=== PATIENT | female | born 1990 | race Caucasian/White ===

== ENCOUNTER 2019-07-27 17:52 | Emergency (ER) | payer OTHER, SELFPAY ==
[2019-07-27 17:59] VITALS: BP 141/56; PULSE 76; RESP 20; TEMP 36.8; O2SAT 99; BMI 33.6
--- NOTE | 2019-07-27 18:15 | PC.NURSE ---
ER at -gave verbal orders on pt
[2019-07-27 18:21] VITALS: BMI 33.6
[2019-07-27 18:29] LABS: Microscopic, Urine URINE MICROSCOPIC (MICROSCOPIC)
[2019-07-27 18:31] LABS: Appearance,Urine CLEAR (Clear); Basophils # 0.1 K/mm3 (0-0.2); Basophils % 0.9 % (0.1-2.0); Bilirubin,Urine Negative (Negative); Blood, Urine Negative (Negative); Color,Urine YELLOW (Yellow); Eosinophils # 0.5 K/mm3 (0.0-0.4); Eosinophils % 4.9 % (0.1-12.0); Glucose,Urine (UA) Negative (Negative); Hematocrit 48.4 % (37.0-47.0); Hemoglobin 15.8 g/dL (12.2-16.2); Ketones,Urine Negative (Negative); Leukocyte Esterase,Urine Negative (Negative); Lymphocytes # 3.5 K/mm3 (0.7-4.5); Lymphocytes % 35.7 % (10-50); Mean Corpuscular HGB Conc 32.7 g/dL (31.8-35.4); Mean Corpuscular Hemoglobin 27.2 pg (27.0-31.2); Mean Corpuscular Volume 83.2 fl (81-99); Mean Platelet Volume 7.9 fl (7.4-10.4); Monocytes # 0.7 K/mm3 (0.1-1.0); Monocytes % 7.1 % (1.7-9.3); Neutrophils # 5.1 K/mm3 (1.8-7.8); Neutrophils % 51.4 % (37.0-80.0); Nitrate,Urine Negative (Negative); Platelet Count 415 K/mm3 (142-424); Protein,Urine Negative (Negative); Red Blood Count 5.82 M/mm3 (4.20-5.40); Red Cell Distribution Width 13.7 % (11.5-17.5); Urobilinogen,Urine 0.2 EU/dl (0.2); White Blood Count 9.9 K/mm3 (4.8-10.8)
[2019-07-27 18:34] LABS: Alanine Aminotransferase 34 U/L (12-78); Albumin Level 4.9 g/dl (3.5-5.0); Albumin/Globulin Ratio 1.5 (1.1-1.8); Alkaline Phosphatase 154 U/L (38-126); Anion Gap 9.8 mEq/L (5-15); Aspartate Amino Transferase 32 U/L (14-36); Bilirubin,Total 0.2 mg/dl (0.2-1.3); Blood Urea Nitrogen 10 mg/dl (7-17); Carbon Dioxide 27 mmol/L (22.0-30.0); Chloride 103 mmol/L (98-107); Creatinine Clearance Estimated 260 mL/min (50-200); Estimated Glomerular Filt Rate 148 ml/min (>60); GFR (African American) 179 ML/MIN (>60); Globulin 3.2 g/dL (1.3-3.2); Glucose 99 mg/dl (74-100); PH,Urine >= 9.0 (5.0-8.5); Potassium 3.8 mmoL/L (3.5-5.1); Sodium 136 mmol/L (136-145); Total Protein,Serum 8.1 g/dl (6.3-8.2)
[2019-07-27 18:35] LABS: Squamous Epithelial Cell,Urine 20-50 #/hpf (0-5); Urine Pregnancy, HCG Qual. Negative (Negative)
[2019-07-27 18:36] LABS: Mucus,Urine 1+ /lpf
[2019-07-27 18:44] LABS: Barbiturates Screen,Urine Negative ng/ml (<200); Benzodiazepines Screen,Urine Negative ng/ml (<200)
[2019-07-27 18:45] LABS: Amphetamine/Metha Screen,Urine Negative ng/ml (<1000)
[2019-07-27 18:46] LABS: Cannabinoid Screen,Urine Negative ng/ml (<50); Cocaine Screen,Urine Positive ng/ml (<300)
[2019-07-27 18:47] LABS: Methadone Screen,Urine Negative ng/ml (<300)
[2019-07-27 18:48] LABS: Opiate Screen,Urine Negative ng/ml (<300); Phencyclidine Screen,Urine Negative ng/ml (<25)
[2019-07-27 19:06] VITALS: BP 172/79; PULSE 78; RESP 20; O2SAT 100
--- NOTE | 2019-07-27 19:07 | HMH.EDGENADL ---
ED Disposition Clinical Impression: Opiate withdrawal Disposition: Home, Self-Care Condition on Discharge: Good Instructions: DI for Nausea -- Adult, DI for Nausea -- Child, DI for Diarrhea and Traveler's Diarrhea -- Adult, DI for Diarrhea and Traveler's Diarrhea -- Child Prescriptions: Promethazine HCl [Phenergan 25mg tablet] 25 mg PO Q6HP PRN 6 Days #20 tab PRN Reason: Agitation Prescription Printed Referrals: Herbert Bran [Primary Care Provider] - - Critical Care Critical Care Time: No Attestation: On 07/27/19, the high probability of a clinically significant, sudden or life threatening deterioration of the following system(s) required my full and direct attention, intervention and personal management. The time I documented below is in addition to time spent performing reported procedures but includes the following listed in this critical care notation. Medical Decision Making - Medical Records Medical records reviewed: Yes: I reviewed the patient's medical records. - Porter Inquiry Pt receiving controlled substance: No Vital Signs: 07/27/19 17:59 07/27/19 19:06 Temperature 98.2 F Temperature Source Oral Pulse Rate [Left Radial] 76 78 Respiratory Rate 20 20 Blood Pressure [Left Arm] 141/56 H 172/79 H Blood Pressure Mean [Left Arm] 84 110 Blood Pressure Source [Left Arm] Automatic Cuff Automatic Cuff Blood Pressure Position [Left Arm] Sitting Sitting 02 Sat by Pulse Oximetry 99 100 Oxygen Delivery Method Room Air Room Air - Lab Data Lab results reviewed: Yes: I reviewed the patient's lab results. Lab Results 07/27/19 18:15: Urine Color Yellow, Urine Appearance Clear, Urine pH >= 9.0 H, Ur Specific [place] 1.020, Urine Protein Negative, Urine Glucose (UA) Negative, Urine Ketones Negative, Urine Blood Negative, Urine Nitrate Negative, Urine Bilirubin Negative, Urine Urobilinogen 0.2, Ur Leukocyte Esterase Negative, Ur Squamous Epith Cells 20-50, Urine Mucus 1+ 07/27/19 18:15: WBC 9.9, RBC 5.82 H, Hgb 15.8, Hct 48.4 H, MCV 83.2, MCH 27.2, MCHC 32.7, RDW 13.7, Plt Count 415, MPV 7.9, Neut % (Auto) 51.4, Lymph % (Auto) 35.7, [place] % (Auto) 7.1, Eos % (Auto) 4.9, Baso % (Auto) 0.9, Neut # (Auto) 5.1, Lymph # (Auto) 3.5, [place] # (Auto) 0.7, Eos # (Auto) 0.5 H, Baso # (Auto) 0.1 07/27/19 18:15: Urine HCG, Qual Negative 07/27/19 18:15: Sodium 136, Potassium 3.8, Chloride 103, Carbon Dioxide 27, Anion Gap 9.8, BUN 10, Creatinine 0.50 L, Estimated Creat Clear 260, Estimated GFR 148, Est GFR ( Amer) 179, Glucose 99, Calcium 10.0, Total Bilirubin 0.2, AST 32, ALT 34, Alkaline Phosphatase 154 H, Total Protein 8.1, Albumin 4.9, Globulin 3.2, Albumin/Globulin Ratio 1.5 07/27/19 18:15: Urine Opiates Screen Negative, Urine Methadone Screen Negative, Ur Barbituates Screen Negative, Ur Phencyclidine Scrn Negative, Ur Amphetamines Screen Negative, U Benzodiazepines Scrn Negative, Urine Cocaine Screen Positive H, U Marijuana (THC) Screen Negative Result diagrams: 07/27/19 18:15 07/27/19 18:15 Orders (Tests/Meds): ED MEDICATIONS Generic Name Dose Route Start Last Admin Trade Name Freq PRN Reason Stop Dose Admin Sodium Chloride 1,000 mls @ 999 mls/hr 07/27/19 18:30 07/27/19 18:26 Sod Chlor 0.9% 1000ml Bag IV 07/27/19 19:30 999 mls/hr .Q1H1M CHRISTINE Administration Discontinued Medications Generic Name Dose Route Start Last Admin Trade Name Freq PRN Reason Stop Dose Admin Promethazine HCl 25 mg 07/27/19 18:22 07/27/19 18:26 Phenergan 25mg/Ml 1ml Vial IV 07/27/19 18:23 25 mg ONCE ONE Administration Sodium Chloride 25 ml 07/27/19 18:22 07/27/19 18:26 Sod Chlor 0.9% 25ml Bag IV 07/27/19 18:23 25 ml ONCE ONE Administration General Adult HPI - General Chief complaint: Nausea/Vomiting/Diarrhea Stated complaint: withdrawals Time Seen by Provider: 07/27/19 19:07 Mode of Arrival: Wheelchair Source of Information: Patient Limitations: No Limitations Description of
--- NOTE | 2019-07-27 19:08 | PC.NURSE ---
Pt up to restroom
[2019-07-27 19:24] VITALS: BP 172/79; PULSE 78; RESP 18; TEMP 36.7; O2SAT 99
== END 2019-07-27 19:26 | disposition home or self-care (01) ==
PROVIDERS: Emergency Provider Family Medicine; PCP Family Medicine
DX: F11.23 Opioid dependence with withdrawal (principal); Z88.1 Allergy status to other antibiotic agents; Z88.2 Allergy status to sulfonamides; F17.210 Nicotine dependence, cigarettes, uncomplicated
CPT/HCPCS: 80053; 80305; 81001; 81025; 85025; 96365; 96375; 99283

== ENCOUNTER 2019-08-25 19:41 | Emergency (ER) | payer OTHER, SELFPAY ==
[2019-08-25 19:37] VITALS: BP 160/92; PULSE 100; RESP 20; O2SAT 98
[2019-08-25 19:39] VITALS: BMI 74.9
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
[2019-08-25 19:42] VITALS: BP 157/73; PULSE 95; RESP 20; O2SAT 99
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
--- NOTE | 2019-08-25 19:45 | PC.NURSE ---
Manual bp 148/90 upon arrival to facility
[2019-08-25 19:47] VITALS: BP 152/93; PULSE 95; RESP 26; O2SAT 98
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
[2019-08-25 19:52] VITALS: BP 153/90; PULSE 94; O2SAT 98
--- NOTE | 2019-08-25 19:52 | PC.NURSE ---
waiting on [facility]
[2019-08-25 19:56] LABS: Basophils % 0.4 % (0.1-2.0); Eosinophils # 0.1 K/mm3 (0.0-0.4); Eosinophils % 1.2 % (0.1-12.0); Hematocrit 46.5 % (37.0-47.0); Hemoglobin 16.3 g/dL (12.2-16.2); Lymphocytes # 3.4 K/mm3 (0.7-4.5); Lymphocytes % 29.3 % (10-50); Mean Corpuscular HGB Conc 35.1 g/dL (31.8-35.4); Mean Corpuscular Hemoglobin 29.5 pg (27.0-31.2); Mean Corpuscular Volume 83.8 fl (81-99); Mean Platelet Volume 7.8 fl (7.4-10.4); Monocytes # 0.6 K/mm3 (0.1-1.0); Monocytes % 4.9 % (1.7-9.3); Neutrophils # 7.4 K/mm3 (1.8-7.8); Neutrophils % 64.3 % (37.0-80.0); Platelet Count 377 K/mm3 (142-424); Red Blood Count 5.55 M/mm3 (4.20-5.40); Red Cell Distribution Width 13.3 % (11.5-17.5); White Blood Count 11.6 K/mm3 (4.8-10.8)
[2019-08-25 19:57] VITALS: BP 152/91; PULSE 95; RESP 24; O2SAT 99
[2019-08-25 20:00] LABS: Chloride 106 mmol/L (98-107); Sodium 140 mmol/L (136-145)
[2019-08-25 20:01] LABS: Potassium 3.5 mmoL/L (3.5-5.1)
[2019-08-25 20:03] VITALS: BP 151/89; PULSE 94; RESP 24; TEMP 36.7; O2SAT 99
[2019-08-25 20:03] LABS: Blood Urea Nitrogen 13 mg/dl (7-17); Creatinine Clearance Estimated 117 mL/min (50-200); Estimated Glomerular Filt Rate 100 ml/min (>60); GFR (African American) 121 ML/MIN (>60)
[2019-08-25 20:04] LABS: Anion Gap 12.5 mEq/L (5-15); Calcium 9.3 mg/dl (8.4-10.2); Carbon Dioxide 25 mmol/L (22.0-30.0); Glucose 125 mg/dl (74-100)
[2019-08-25 20:58] LABS: Microscopic, Urine URINE MICROSCOPIC (MICROSCOPIC)
[2019-08-25 20:59] LABS: Blood, Urine 3+ (Negative); Glucose,Urine (UA) Negative (Negative); Ketones,Urine 2+ (Negative); Leukocyte Esterase,Urine TRACE (Negative); Nitrate,Urine Negative (Negative); PH,Urine 6.5 (5.0-8.5); Protein,Urine 1+ (Negative); Specific Gravity, Urine 1.025 (1.005-1.030)
[2019-08-25 21:03] LABS: Appearance,Urine Cloudy (Clear); Bilirubin,Urine Negative (Negative); Color,Urine Dark Yellow (Yellow)
[2019-08-25 21:24] LABS: Bacteria,Urine 4+ /lpf; Mucus,Urine 2+ /lpf
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
--- NOTE | 2019-08-26 00:43 | PC.NURSE ---
@[phone] on phone with MDs, patient accepted by Dr. Malloy
--- NOTE | 2019-08-26 00:44 | PC.NURSE ---
@1924 Waiting on [facility] for transfer
[2019-09-18 12:29] LABS: POC Glucose,Bedside 121 (70-110)
== END 2019-08-25 20:05 | disposition short-term general hospital (02) ==
PROVIDERS: Emergency Provider Emergency Medicine
DX: M54.2 Cervicalgia (principal); M54.6 Pain in thoracic spine; R10.84 Generalized abdominal pain; S00.211A Abrasion of right eyelid and periocular area, initial encounter; Y92.488 Other paved roadways as the place of occurrence of the external cause; V43.62XA Car passenger injured in collision with other type car in traffic accident, initial encounter; F17.210 Nicotine dependence, cigarettes, uncomplicated; Z88.1 Allergy status to other antibiotic agents; Z88.2 Allergy status to sulfonamides
CPT/HCPCS: 71045; 72170; 80048; 81001; 82962; 85025; 87086; 87088; 87186; 96374; 96375; 99284

== ENCOUNTER 2020-01-09 12:56 | Emergency (ER) | payer OTHER, SELFPAY ==
--- NOTE | 2020-01-09 13:15 | PC.NURSE ---
PATIENT TO [facility] FROM REGISTRATION AT THIS TIME
[2020-01-09 13:20] VITALS: BP 142/87; PULSE 72; RESP 19; TEMP 36.9; O2SAT 98; BMI 39.1
--- NOTE | 2020-01-09 13:34 | HMH.EDUTC ---
[facility] [place] Disposition Clinical Impression: Fluid retention in legs, Cellulitis of abdominal wall Disposition: Home, Self-Care Condition on Discharge: Good Instructions: DI for Cellulitis -- Adult Prescriptions: cephALEXin [Keflex 500mg Cap] 500 mg PO Q6H 10 Days #40 cap Transmission Status: Pending to [facility] Furosemide [Lasix 20mg tab] 20 mg PO DAILY #7 tab Transmission Status: Pending to [facility] Referrals: Herbert Bran [Primary Care Provider] - Time of Disposition: 14:51 Medical Decision Making - Porter Inquiry Pt receiving controlled substance: No Vital Signs: 01/09/20 13:20 Temperature 98.4 F Temperature Source Oral Pulse Rate [Right Brachial] 72 Respiratory Rate 19 Blood Pressure [Right Arm] 142/87 H Blood Pressure Mean [Right Arm] 105 Blood Pressure Source [Right Arm] Automatic Cuff Blood Pressure Position [Right Arm] Sitting 02 Sat by Pulse Oximetry 98 Oxygen Delivery Method Room Air - Lab Data Lab results reviewed: Yes: I reviewed the patient's lab results. Lab Results 01/09/20 13:45: WBC 8.5, RBC 4.97, Hgb 14.3, Hct 42.6, MCV 85.6, MCH 28.8, MCHC 33.6, RDW 13.7, Plt Count 277, MPV 7.6, Neut % (Auto) 49.7, Lymph % (Auto) 39.1, [place] % (Auto) 6.0, Eos % (Auto) 4.7, Baso % (Auto) 0.6, Neut # (Auto) 4.2, Lymph # (Auto) 3.3, [place] # (Auto) 0.5, Eos # (Auto) 0.4, Baso # (Auto) 0.1, ESR 11 01/09/20 13:45: Sodium 137, Potassium 3.7, Chloride 103, Carbon Dioxide 30, Anion Gap 7.7, BUN 10, Creatinine 0.60, Estimated Creat Clear 250, Estimated GFR 119, Est GFR ( Amer) 144, Glucose 72 L, Calcium 8.6, Total Bilirubin 0.2, AST 48 H, ALT 70, Alkaline Phosphatase 101, NT-Pro-B Natriuret Pep 71.4, Total Protein 6.5, Albumin 3.9, Globulin 2.6, Albumin/Globulin Ratio 1.5 Result diagrams: 01/09/20 13:45 01/09/20 13:45 [facility] [place] HPI - General Stated complaint: Swollen legs from hips down Time Seen by Provider: 01/09/20 13:34 - History of Present Illness Provider Complaint: Patient had sublocade injection 1 week ago. This was her 2nd injection. She has a knot at the injection site and skin is red, sore and swollen. For the past 3-4 days, her legs are very swollen. She has pitting edema. She stands on her feet at work. She can hardly bend her legs. She denies IVDU. She denies SOA. Has never had problems with fluid retention in the past. No fever. Onset (ago): week(s) (1) Location: abdomen, left, right, lower extremity Relieving factors: none Exacerbating factors: none Associated symptoms: denies other symptoms Treatments prior to arrival: none - Related Data Previous Rx's Medication Instructions Recorded Furosemide [Lasix 20mg tab] 20 mg PO DAILY #7 tab 01/09/20 cephALEXin [Keflex 500mg Cap] 500 mg PO Q6H 10 Days #40 cap 01/09/20 Allergies Allergy/AdvReac Type Severity Reaction Status Date / Time amoxicillin [From AUGMENTIN] Allergy Unknown Verified 07/27/19 18:23 clavulanic acid Allergy Unknown Verified 07/27/19 18:23 [From AUGMENTIN] ibuprofen [IBUPROFEN] Allergy Unknown Verified 07/27/19 18:23 metaxalone [From SKELAXIN] Allergy Unknown Verified 07/27/19 18:23 sulfamethoxazole Allergy Unknown Verified 07/27/19 18:23 [From BACTRIM] trimethoprim [From BACTRIM] Allergy Unknown Verified 07/27/19 18:23 [facility] History - Hepatitis A Screen Attestation statement:: This patient has been screened for Hepatitis A risk factors. I have reviewed the patient's past medical history: Yes Medical History: Denies:: Diabetes Mellitus Type 1, Diabetes Mellitus Type 2 - Social History Smoking Status: Current every day smoker Tobacco Type: cigarettes # Packs/Day (cigarettes): 1 Alcohol Intake: never Substance Use Type: opiates Occupational Status: other ROS Obtained: Yes All systems reviewed & no additional complaints - Musculoskeletal Musculoskeletal: Reports as per HPI - Integumentary/Breasts Skin/Breast: Reports as per HPI, Reports
[2020-01-09 14:14] LABS: Basophils # 0.1 K/mm3 (0-0.2); Basophils % 0.6 % (0.1-2.0); Eosinophils # 0.4 K/mm3 (0.0-0.4); Eosinophils % 4.7 % (0.1-12.0); Hematocrit 42.6 % (37.0-47.0); Hemoglobin 14.3 g/dL (12.2-16.2); Lymphocytes # 3.3 K/mm3 (0.7-4.5); Lymphocytes % 39.1 % (10-50); Mean Corpuscular HGB Conc 33.6 g/dL (31.8-35.4); Mean Corpuscular Hemoglobin 28.8 pg (27.0-31.2); Mean Corpuscular Volume 85.6 fl (81-99); Mean Platelet Volume 7.6 fl (7.4-10.4); Monocytes # 0.5 K/mm3 (0.1-1.0); Neutrophils # 4.2 K/mm3 (1.8-7.8); Neutrophils % 49.7 % (37.0-80.0); Platelet Count 277 K/mm3 (142-424); Red Blood Count 4.97 M/mm3 (4.20-5.40); Red Cell Distribution Width 13.7 % (11.5-17.5); White Blood Count 8.5 K/mm3 (4.8-10.8)
[2020-01-09 14:20] LABS: Chloride 103 mmol/L (98-107); Potassium 3.7 mmoL/L (3.5-5.1); Sodium 137 mmol/L (136-145)
[2020-01-09 14:22] LABS: Blood Urea Nitrogen 10 mg/dl (7-17); Creatinine Clearance Estimated 250 mL/min (50-200); Estimated Glomerular Filt Rate 119 ml/min (>60); GFR (African American) 144 ML/MIN (>60)
[2020-01-09 14:23] LABS: Alanine Aminotransferase 70 U/L (12-78); Albumin Level 3.9 g/dl (3.5-5.0); Albumin/Globulin Ratio 1.5 (1.1-1.8); Alkaline Phosphatase 101 U/L (38-126); Anion Gap 7.7 mEq/L (5-15); Aspartate Amino Transferase 48 U/L (14-36); Bilirubin,Total 0.2 mg/dl (0.2-1.3); Calcium 8.6 mg/dl (8.4-10.2); Carbon Dioxide 30 mmol/L (22.0-30.0); Globulin 2.6 g/dL (1.3-3.2); Glucose 72 mg/dl (74-100); Total Protein,Serum 6.5 g/dl (6.3-8.2)
[2020-01-09 14:32] LABS: NT Pro Brain Natriuretic Pep. 71.4 pg/mL (0-125)
[2020-01-09 14:41] LABS: Erythrocyte Sedimentation Rate 11 mm/hr (0-20)
[2020-01-09 15:28] VITALS: BP 142/87; PULSE 72; RESP 19; TEMP 36.9; O2SAT 98
== END 2020-01-09 15:30 | disposition home or self-care (01) ==
PROVIDERS: Emergency Provider Physician Assistant; PCP Family Medicine
DX: L03.311 Cellulitis of abdominal wall (principal); R60.0 Localized edema; Z88.1 Allergy status to other antibiotic agents; Z88.2 Allergy status to sulfonamides; F17.210 Nicotine dependence, cigarettes, uncomplicated
CPT/HCPCS: 80053; 83880; 85025; 85651; 99201

== ENCOUNTER 2020-04-27 17:05 | Emergency (ER) | payer OTHER, SELFPAY ==
--- NOTE | 2020-04-27 17:57 | HMH.EDUTC ---
[facility] [place] Disposition Clinical Impression: Exposure to COVID-19 virus Disposition: Home, Self-Care Condition on Discharge: Good Instructions: Preventing the Spread of Coronavirus Discharge Instructions Additional Instructions: Drink plenty of fluids. Take tylenol for pain or fever. Return if you begin to have difficulty breathing. Follow up with your regular doctor. GO TO THE ER FOR ANY WORSENING SYMPTOMS Referrals: Herbert Bran [Primary Care Provider] - Time of Disposition: 17:58 Medical Decision Making - Medical Records Medical records reviewed: No: I reviewed the patient's medical records. - Porter Inquiry Pt receiving controlled substance: No Vital Signs: 04/27/20 18:09 04/27/20 18:22 Temperature 98.1 F 97.9 F Temperature Source Oral Tympanic Pulse Rate 82 Pulse Rate [Right] 85 Respiratory Rate 16 16 Blood Pressure 130/90 Blood Pressure [Right Arm] 137/97 H Blood Pressure Mean [Right Arm] 110 Blood Pressure Source [Right Arm] Automatic Cuff Blood Pressure Position [Right Arm] Sitting 02 Sat by Pulse Oximetry 95 Oxygen Delivery Method Room Air Orders (Tests/Meds): ORDERS Category Date Time Status Covid-19 Nasal PCR ([facility]) Routine Lab 04/27/20 17:45 Received [facility] [place] HPI - General Stated complaint: Covid test Time Seen by Provider: 04/27/20 17:57 - History of Present Illness Provider Complaint: She has been exposed to covid 2 days ago. She denies any symptoms so far. - Related Data Previous Rx's Medication Instructions Recorded Furosemide [Lasix 20mg tab] 20 mg PO DAILY #7 tab 01/09/20 cephALEXin [Keflex 500mg Cap] 500 mg PO Q6H 10 Days #40 cap 01/09/20 Allergies Allergy/AdvReac Type Severity Reaction Status Date / Time amoxicillin [From AUGMENTIN] Allergy Unknown Verified 04/27/20 18:12 clavulanic acid Allergy Unknown Verified 04/27/20 18:12 [From AUGMENTIN] ibuprofen [IBUPROFEN] Allergy Unknown Verified 04/27/20 18:12 metaxalone [From SKELAXIN] Allergy Unknown Verified 04/27/20 18:12 sulfamethoxazole Allergy Unknown Verified 04/27/20 18:12 [From BACTRIM] trimethoprim [From BACTRIM] Allergy Unknown Verified 04/27/20 18:12 [facility] History - Hepatitis A Screen Attestation statement:: This patient has been screened for Hepatitis A risk factors. I have reviewed the patient's past medical history: Yes Medical History: Denies:: Diabetes Mellitus Type 1, Diabetes Mellitus Type 2 Laterality Cases: Bilateral: Myringotomy (Ear Tubes) - Social History Smoking Status: Current every day smoker Tobacco Type: cigarettes # Packs/Day (cigarettes): 1 Alcohol Intake: never Substance Use Type: opiates Occupational Status: other ROS Obtained: Yes All systems reviewed & no additional complaints - Constitutional Constitutional: Reports system reviewed and no additional complaints, except as docu - Eyes Eyes: Reports system reviewed and no additional complaints, except as docu - ENT Ears, Nose, Mouth, and Throat: Reports system reviewed and no additional complaints, except as docu - Cardiovascular Cardiovascular: Reports system reviewed and no additional complaints, except as docu - Respiratory Respiratory: Reports system reviewed and no additional complaints, except as docu - Gastrointestinal Gastrointestingal: Reports: system reviewed and no additional complaints, except as docu Physical Exam - General General appearance: alert, in no apparent distress - Head Head exam: atraumatic, normocephalic, normal inspection - Eye Eye exam: Present: normal appearance, PERRL, EOMI - ENT ENT exam: Present: normal exam, normal oropharynx, mucous membranes moist, TM's normal bilaterally, normal external ear exam - Neck Neck exam: Present: normal inspection, full ROM, trachea midline. Absent: meningismus, lymphadenopathy - Chest Chest inspection: Present: normal inspection, symmetric chest wall rise. Absent: tenderness -
[2020-04-27 18:09] VITALS: BP 137/97; PULSE 85; RESP 16; TEMP 36.7; O2SAT 95; BMI 37.5
[2020-04-27 18:22] VITALS: BP 130/90; PULSE 82; RESP 16; TEMP 36.6
== END 2020-04-27 18:23 | disposition home or self-care (01) ==
PROVIDERS: Emergency Provider Nurse Practitioner Family; PCP Family Medicine
DX: Z20.822 Contact with and (suspected) exposure to COVID-19 (principal); Z88.1 Allergy status to other antibiotic agents; Z88.2 Allergy status to sulfonamides; F17.210 Nicotine dependence, cigarettes, uncomplicated
CPT/HCPCS: 99202; G0463; U0003

== ENCOUNTER 2022-11-13 14:17 | Emergency (ER) | payer SELFPAY ==
[2022-11-13 14:18] VITALS: BP 128/66; PULSE 68; RESP 16; TEMP 36.8; O2SAT 98; BMI 34.9
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
--- NOTE | 2022-11-13 14:43 | PC.NURSE ---
pt had tubal ligation approx 3 years ago.
[2022-11-13 15:01] VITALS: BP 122/77; PULSE 69; O2SAT 99
[2022-11-13 15:30] VITALS: BP 132/79; PULSE 67; O2SAT 98
--- NOTE | 2022-11-13 15:45 | PC.NURSE ---
rounded on pt no needs or complaints call light at bs
[2022-11-13 16:01] VITALS: BP 133/72; PULSE 68; O2SAT 99
[2022-11-13 16:33] VITALS: BP 133/72; PULSE 68; RESP 16; TEMP 36.8; O2SAT 99
== END 2022-11-13 16:34 | disposition home or self-care (01) ==
PROVIDERS: Emergency Provider Emergency Medicine; PCP Family Medicine
DX: S16.1XXA Strain of muscle, fascia and tendon at neck level, initial encounter (principal); S23.3XXA Sprain of ligaments of thoracic spine, initial encounter; V43.52XA Car driver injured in collision with other type car in traffic accident, initial encounter; F17.210 Nicotine dependence, cigarettes, uncomplicated
CPT/HCPCS: 72125; 72128; 99285